=== PATIENT | female | born 1985 | race Caucasian/White ===

== ENCOUNTER 2019-03-29 14:29 | Emergency (ER) | payer OTHER ==
[2019-03-29 14:50] VITALS: BP 136/81
--- NOTE | 2019-03-29 14:56 | UC ---
Knee Pain HPI - HPI Summary HPI Summary: 33-year-old female presents with complaints of left knee pain. States on 2018 she accidentally fell at work and landed on her left knee. Reports she was never evaluated for this injury. Has had some persistent tenderness of the anterior knee especially with touch or kneeling. 2 days ago she started noticing some swelling to the anterior knee. Has full range of motion. States she is able to walk and bear weight without pain. Denies fever, chills, erythema , ecchymosis, numbness, or tingling. - History of Current Complaint Chief Complaint: UCLowerExtremity Stated Complaint: LEFT KNEE INJURY-WC Time Seen by Provider: 03/29/19 14:51 Hx Obtained From: Patient Hx Last Menstrual Period: "probably 3 weeks ago" Pain Intensity: 0 - Allergies/Home Medications Allergies/Adverse Reactions: Allergies Allergy/AdvReac Type Severity Reaction Status Date / Time environmental allergy Allergy Sneezing Uncoded 03/29/19 14:47 Home Medications: Home Medications Norethindrone [Jencycla] 1 tab DAILY 03/29/19 [History Confirmed 03/29/19] PMH/Surg Hx/FS Hx/Imm Hx Previously Healthy: Yes - Denies significant PMH - Surgical History Surgical History: Yes Surgery Procedure, Year, and Place: tonsillectomy - Family History Known Family History: Positive: Non-Contributory - Social History Occupation: Employed Full-time Lives: With Family Alcohol Use: Occasionally Substance Use Type: None Smoking Status (MU): Heavy Every Day Tobacco Smoker Type: Cigarettes Amount Used/How Often: 3/4 PPD Length of Time of Smoking/Using Tobacco: 13 Years Have You Smoked in the Last Year: Yes Household Exposure Type: Cigarettes - Immunization History Most Recent Influenza Vaccination: Not the 2015/2015 Season Review of Systems All Other Systems Reviewed And Are Negative: Yes Constitutional: Negative: Fever, Chills Skin: Negative: Bruising Respiratory: Positive: Negative Cardiovascular: Positive: Negative Gastrointestinal: Positive: Negative Genitourinary: Positive: Negative Motor: Negative: Weakness Neurovascular: Negative: Decreased Sensation Musculoskeletal: Positive: Other: - See HPI. Negative: Decreased ROM Neurological: Positive: Negative Is Patient Immunocompromised?: No Physical Exam - Summary Physical Exam Summary: GENERAL APPEARANCE: Well developed, well nourished, alert and cooperative, and appears to be in no acute distress. CARDIAC: Normal S1 and S2. No S3, S4 or murmurs. Rhythm is regular. There is no peripheral edema, cyanosis or pallor. Extremities are warm and well perfused. Capillary refill is less than 2 seconds. Peripheral pulses intact. LUNGS: Clear to auscultation without rales, rhonchi, wheezing or diminished breath sounds. ABDOMEN: Positive bowel sounds. Soft, nondistended, nontender. No guarding or rebound. No masses or hepatosplenomegally. MUSKULOSKELETAL: Normal muscular development. Normal gait. EXTREMITIES: Mild tenderness and edema of the left prepatellar bursa without redness or increased warmth. Full painless ROM to the knee. No laxity. Circulation and sensation intact. SKIN: Skin normal color, texture and turgor with no lesions or eruptions. Triage Information Reviewed: Yes Vital Signs: Initial Vital Signs Temp 98.7 F 03/29/19 14:47 Pulse 83 03/29/19 14:47 Resp 14 03/29/19 14:47 BP 136/81 03/29/19 14:47 Pulse Ox 100 03/29/19 14:47 Vital Signs Reviewed: Yes Diagnostics - Radiology No standard instances Radiology Interpretation Completed By: Radiologist Summary of Radiographic Findings: Order Information: KNEE LEFT 4+ VWS. Indication: Left knee pain. 4 views of left knee demonstrates no fracture or dislocation. No other bone or joint abnormalities identified. IMPRESSION: No fracture of the left knee is noted. Knee Pain Course/Dx - Course Course Of Treatment: 33-year-old female presents with complaints of left knee pain. States on 2018 she accidentally fell at work and landed on her left knee. Reports she was never evaluated for this injury. Has had some persistent tenderness of the anterior knee especially with touch or kneeling. 2 days ago she started noticing some swelling to the anterior knee. Has full range of motion. States she is able to walk and bear weight without pain. Denies fever, chills, erythema , ecchymosis, numbness, or tingling. Afebrile. Vital signs stable. Patient had mild tenderness and edema of the left prepatellar bursa without redness or increased warmth. Full painless ROM to the knee. No laxity. Circulation and sensation intact. X-ray showed no acute fracture. Discussed results with the patient and I'm recommending conservative treatment for a prepatellar bursitis likely secondary to the initial trauma to the knee. An Shoaib wrap was applied by the RN. She is to follow-up with orthopedic surgery in 5-7 days for further evaluation especially if symptoms are not improving. Anticipatory guidance of warning symptoms were reviewed with the patient. Verbalizes understanding and agrees with plan of care. - Differential Dx/Diagnosis Differential Diagnosis/HQI/PQRI: Bursitis, Internal Derangement Of Knee, Infection, Sprain Provider Diagnosis: Prepatellar bursitis of left knee Discharge ED - Sign-Out/Discharge Documenting (check all that apply): Patient Departure All imaging exams completed and their final reports reviewed: Yes - Discharge Plan Condition: Stable Disposition: HOME Patient Education Materials: Knee Bursitis (ED) Referrals: No Primary Care Phys,NOPCP [Primary Care Provider] - Lorenzo Julian MD [Medical Doctor] - (Call for appointment.) Additional Instructions: The x-ray performed in the clinic today showed no evidence of a fracture. The swelling to your knee is from a condition called prepatellar burstitis. Rest the knee as much as possible. Use an SHOAIB wrap or compression sleeve to help manage the swelling. Apply ice to the affected area for 15-20 minutes at least 4 times a day to help with the pain and swelling. Elevate the leg to help reduce swelling. Take ibuprofen (Advil, Motrin) or naproxen (Aleve) according to directions as needed for pain. Protect the knee by wearing a knee pad if you need to do any work that requires you to kneel. Follow up with orthopedic surgery in 5-7 days for further evaluation and treatment. Seek immediate medical attention if you have severe pain not managed with pain medication, you are unable to walk or bear any weight, develop numbness or tingling in the leg, foot, or toes, or have any worsening of symptoms. - Billing Disposition and Condition Condition: STABLE Disposition: Home
== END 2019-03-29 15:48 | disposition home or self-care (01) ==
LOC: UCCORT 14:29
DX: M70.42 Prepatellar bursitis, left knee (principal); F17.210 Nicotine dependence, cigarettes, uncomplicated; Z91.09 Other allergy status, other than to drugs and biological substances
CPT/HCPCS: 99202; G0463